=== PATIENT | male | born 1960 | race Hispanic/Latino ===

== ENCOUNTER 2018-01-12 10:50 | Emergency (ER) | payer OTHER ==
[~2018-01-12] VITALS: Ht 167.6 cm; Wt 79.6 kg
[~2018-01-12 10:50] MED LIST: LIPITOR40 MG OR; NO HOME MEDS
[2018-01-12] MEDS ORDERED: AUGMENTIN875TAB PO (11:13)
[2018-01-12 11:18] VITALS: BP 114/68
== END 2018-01-12 11:20 | disposition home or self-care (01) | DRG 153 ==
LOC: ED 10:50
DX: J02.0 Streptococcal pharyngitis (principal); R50.9 Fever, unspecified

== ENCOUNTER 2023-08-10 21:01 | Emergency (ER) | payer OTHER ==
[~2023-08-10] VITALS: Ht 167.6 cm; Wt 81.6 kg
[~2023-08-10 21:01] MED LIST changes: +AUGMENTIN875TAB PO
[2023-08-10 21:15] VITALS: BP 128/84
[2023-08-10 21:30] VITALS: BP 131/76
[2023-08-10 21:45] VITALS: BP 114/74
[2023-08-10 22:00] VITALS: BP 122/81
[2023-08-11 01:03] VITALS: BP 130/57
[2023-08-11 01:09] VITALS: BP 130/57
== END 2023-08-11 01:18 | DRG 563 ==
LOC: ED 21:01
DX: S52.512A Displaced fracture of left radial styloid process, initial encounter for closed fracture (principal); J98.11 Atelectasis; S52.612A Displaced fracture of left ulna styloid process, initial encounter for closed fracture; V40.0XXA Car driver injured in collision with pedestrian or animal in nontraffic accident, initial encounter